=== PATIENT | male | born 1945 | race Caucasian/White ===

== ENCOUNTER 2019-07-13 17:22 | Inpatient (IN) | payer OTHER ==
[2019-07-13 17:56] VITALS: BMI 27.4
[2019-07-13] MEDS ORDERED: Ondansetron PF 4 MG/2 ML Vial IVP PRN (18:13)
[2019-07-13] MEDS ORDERED: Ondansetron ODT 4 MG TAB SL PRN (18:13)
[2019-07-13] MEDS ORDERED: Acetaminophen 325 MG TAB PO PRN (18:13)
[2019-07-13] MEDS ORDERED: Sodium Chloride 0.9% 1,000 ML IV SCH (18:13)
--- NOTE | 2019-07-13 20:16 | PDOC.EVN ---
Event Note - Event Note Event Note: [id number]
[2019-07-13] MEDS: Sodium Chloride 0.9% 1,000 ML IV SCH (21:04)
--- NOTE | 2019-07-13 23:51 | ULT ---
RENAL ULTRASOUND HISTORY: History of dislodged left-sided nephrostomy tube; evaluate for hydronephrosis COMPARISON: None FINDINGS: Right Kidney: Size: 9.0 x 4.2 x 5.7 cm. Abnormality: Normal cortical echotexture. No hydronephrosis. Left Kidney: Size: 9.3 x 4.7 x 4.6 cm. Abnormality: There is mild left hydronephrosis. Urinary bladder: No visible urinary jets identified. IMPRESSION: 1. Mild left hydronephrosis
--- NOTE | 2019-07-14 02:20 | HP ---
CHIEF COMPLAINT: Left nephrostomy tube dislodged. HISTORY OF PRESENT ILLNESS: Mr. Dobbs is a 73-year-old male who is an inmate, brought after it was noticed that his left nephrostomy tube got dislodged. The patient does have a history of prostate cancer, complications from bilateral ureteral stents, and insertion of bilateral nephrostomy tubes. The patient noticed that his left nephrostomy tube got dislodged the last 2 days. The patient denies any flank pain, abdominal pain, fever, or chills. The patient was brought for nephrostomy tube replacement. PAST MEDICAL HISTORY: 1. Prostate cancer. 2. Hearing loss. 3. Heart murmur. PAST SURGICAL HISTORY: 1. Bilateral nephrostomy tubes. 2. Bilateral ureteral stents. 3. Prostate surgery. FAMILY HISTORY: Reviewed and noncontributory. ALLERGIES: NO KNOWN ALLERGIES. HOME MEDICATIONS: Please see home medication reconciliation form for updated medications. REVIEW OF SYSTEMS: Review of 14 systems negative except what is mentioned in history of present illness. PHYSICAL EXAMINATION: GENERAL: The patient is awake, alert, does not appear to be in acute distress. VITAL SIGNS: Blood pressure 106/71, heart rate is 90, temperature 98.3, respiratory rate 20. HEAD AND NECK: Normocephalic, atraumatic. NECK: Supple. No JVD. CHEST: Fair bilateral air entry. HEART: S1, S2. Regular. ABDOMEN: Soft, nontender. Bowel sounds present. BACK: Right nephrostomy tube is secured in place. Ostomy of the left nephrostomy tube appears clean. No erythema. NEUROLOGIC: Awake, alert, and oriented x3. PSYCHIATRIC: Normal mood. EXTREMITIES: No clubbing or cyanosis. LABORATORY DATA: Done prior to arrival. WBC count is 8.6, hemoglobin 10.5, platelets 162. Sodium 138, potassium 4.3, BUN is 48, creatinine 2.8. The patient stated he has a history of chronic kidney disease, but he does not know what his baseline creatinine is. ASSESSMENT AND PLAN: 1. Left nephrostomy tube dislodged. 2. Chronic kidney disease. 3. History of prostate cancer. 4. Hearing loss. PLAN: 1. Admit. 2. Consulted Interventional Radiology for nephrostomy tube replacement. 3. IV fluids. 4. Reconcile home medications. 5. DVT prophylaxis as appropriate. 6. Expected length of stay at least 1 midnight if the patient is stable and have the procedure done. Job ID: [id number]
[2019-07-14] MEDS: Sodium Chloride 0.9% 1,000 ML IV SCH ×2 (04:58→08:22)
[2019-07-14 09:30] LABS: Anion Gap 11 mmol/L (10-20); BUN (Urea Nitrogen) 46 mg/dL (8.4-25.7); Calc. Creatinine Clearance 31 mL/min (70-130); Calcium 9.2 mg/dL (7.8-10.44); Carbon Dioxide 21 mmol/L (23-31); Chloride 112 mmol/L (98-107); Estimated GFR-MDRD 23; Glucose 89 mg/dL (83-110); Potassium 4.2 mmol/L (3.5-5.1); Sodium 140 mmol/L (136-145)
[2019-07-14] MEDS ORDERED: Iopamidol 300 61% 50 ML VIAL FS ONE (11:16)
--- NOTE | 2019-07-14 13:58 | SPC ---
Left nephrostomy tube placement: 07/14/2019 HISTORY: 73-year-old male with a history of prostate cancer. The patient's left-sided nephrostomy tub e recently was inadvertently dislodged. FINDINGS: Informed consent obtained prior to the procedure. The access tract for the patient's previous left nephrostomy tube was prepped and draped in normal st erile fashion. Using a Berenstein catheter, the pre-existing tract was probed. The Berenstein catheter was advanced into the renal collecting system and into the proximal ureter, location confirm ed with injection of small volume contrast media. A Think Upgrade wire was extended through the Berenstein catheter, and the Berenstein catheter was subsequently removed. The tract was dilated to 1 0 Vincentian. A 10 Vincentian nephrostomy tube was then advanced over the wire into the ureter. Wire was removed. The pigtail was formed in the renal collecting system and location was confirmed with inject ion of small volume contrast media. Aspiration at this point yields blood tinged urine. Catheter was locked in place and placed to gravity drainage. IMPRESSION: Successful left nephrostomy tube placement.
[2019-07-14] MEDS: HYDROcodone/Acetaminophen 5/325 mg Tablet PO PRN ×2 (15:38→21:00)
--- NOTE | 2019-07-14 21:50 | PDOC.HOSPP ---
- Subjective Encounter Date: 07/14/19 Encounter Time: 09:48 Subjective: 73 y/o male, [facility] inmate with prostate cancer complicated by bilateral hydronephrosis s/p bilateral nephrostomy tubes admitted after Left nephrostomy tube fell off. IR replacement of nephrostomy tube is planned today. - Objective Vital Signs & Weight: Vital Signs (12 hours) Temp Pulse Resp BP Pulse Ox 07/14/19 20:57 98.7 F 89 18 127/77 97 Weight Weight 208 lb Result Diagrams: 07/14/19 08:39 Hospitalist ROS - Medication Medications: Active Medications Generic Name Dose Route Start Last Admin Trade Name Freq PRN Reason Stop Dose Admin Hydrocodone Bitart/Acetaminophen 1 tab 07/13/19 19:29 07/14/19 21:00 [place] 5/325 PO 1 tab Q4H PRN Administration Moderate Pain (4-6) Sodium Chloride 1,000 mls @ 100 mls/hr 07/13/19 19:30 07/14/19 08:22 Normal Saline 0.9% IV 1,000 mls .Q10H DEBBI Administration - Exam General Appearance: awake alert Eye: anicteric sclera ENT: normocephalic atraumatic Neck: supple, symmetric, no thyromegaly, no lymphadenopathy Heart: RRR, murmur present Respiratory: no wheezes, no rales, no ronchi, normal chest expansion Gastrointestinal: soft, non-tender, non-distended, normal bowel sounds Extremities: no cyanosis, no edema Neurological: cranial nerve grossly intact, no focal deficits Musculoskeletal: generalized weakness Psychiatric: A&O x 3 Hosp A/P (1) Bilateral hydronephrosis Code(s): N13.30 - UNSPECIFIED HYDRONEPHROSIS Status: Acute (2) Prostate cancer Code(s): C61 - MALIGNANT NEOPLASM OF PROSTATE Status: Acute - Plan Continue home medications. Await IR replacement of left nephrostomy tube. D/W interventional regiographer. NPO to continue.
[2019-07-15] MEDS: Sodium Chloride 0.9% 1,000 ML IV SCH ×3 (04:50→20:10)
[2019-07-15 07:20] LABS: Hemoglobin 10.3 g/dL (14.0-18.0); Mean Corpuscular HGB CONC 33.8 g/dL (32.0-36.0); Mean Corpuscular Hemoglobin 31.3 pg (27.0-31.0); Mean Corpuscular Volume 92.6 fL (78.0-98.0); Mean Platelet Volume 8.8 fL (7.4-10.4); Platelet Count 169 thou/uL (130-400); RBC Distribution Width 11.9 % (11.5-14.5); Red Blood Cell (RBC) Count 3.28 mill/uL (4.70-6.10); White Blood Cell (WBC) Count 11.5 thou/uL (4.8-10.8)
[2019-07-15 07:42] LABS: Albumin 3.4 g/dL (3.4-4.8); Anion Gap 14 mmol/L (10-20); BUN (Urea Nitrogen) 50 mg/dL (8.4-25.7); BUN/Creatinine Ratio 14.84; Calc. Creatinine Clearance 26 mL/min (70-130); Calcium 9.5 mg/dL (7.8-10.44); Carbon Dioxide 20 mmol/L (23-31); Chloride 109 mmol/L (98-107); Estimated GFR-MDRD 18; Glucose 109 mg/dL (83-110); Phosphorus 3.1 mg/dL (2.3-4.7); Sodium 138 mmol/L (136-145)
[2019-07-15] MEDS ORDERED: Sodium Bicarbonate Tab 325 MG TAB PO SCH (10:15)
[2019-07-15] MEDS ORDERED: Sodium Chloride 0.9% 500 ML IV SCH (11:45)
--- NOTE | 2019-07-15 12:33 | ULT ---
Exam: Bilateral renal ultrasound complete: HISTORY: Worsening renal function post nephrostomy tube COMPARISON: 07/13/2019 FINDINGS: Right kidney: 9.1 x 4.9 x 4.3 cm. Left kidney: 9.6 x 5.7 x 4.9 cm The previous noted left-sided mild hydronephrosis has resolved. No evidence for hydronephrosis at this time. No evidence for abnormal perinephric process. No solid or cystic renal mass. Somewhat thickened appearing bladder wall, nonspecific, this could be seen in inflammation/infection versus neoplasm. IMPRESSION: No evidence for renal hydronephrosis. Nonspecific abnormal wall thickening of the urinary bladder.
--- NOTE | 2019-07-15 14:08 | PDOC.HOSPP ---
- Subjective Encounter Date: 07/15/19 Encounter Time: 13:47 Subjective: 73 y/o male, care home inmate with prostate cancer complicated by bilateral hydronephrosis s/p bilateral nephrostomy tubes admitted after Left nephrostomy tube fell off. S/p replacememt of left nephrostomy tube by IR. Complain of decreased urine output from the left. No fever, chills or dyuria - Objective Vital Signs & Weight: Vital Signs (12 hours) Temp Pulse Resp BP Pulse Ox 07/15/19 07:19 97.9 F 73 18 138/77 91 L 07/15/19 04:56 98.5 F 73 18 127/74 97 Weight Weight 208 lb I&O: 07/14/19 07/15/19 07/16/19 06:59 06:59 06:59 Intake Total 720 Output Total 737 Balance -17 Result Diagrams: 07/15/19 07:09 07/15/19 07:09 Hospitalist ROS - Medication Medications: Active Medications Generic Name Dose Route Start Last Admin Trade Name Freq PRN Reason Stop Dose Admin Hydrocodone Bitart/Acetaminophen 1 tab 07/13/19 19:29 07/14/19 21:00 [place] 5/325 PO 1 tab Q4H PRN Administration Moderate Pain (4-6) Sodium Chloride 1,000 mls @ 125 mls/hr 07/15/19 11:45 07/15/19 13:45 Normal Saline 0.9% IV 1,000 mls .Q8H DEBBI Administration - Exam General Appearance: awake alert Eye: anicteric sclera ENT: normocephalic atraumatic, moist mucosa Neck: symmetric, no JVD Heart: RRR, murmur present Respiratory: no wheezes, no rales, no ronchi, normal chest expansion Gastrointestinal: soft, non-tender, non-distended, normal bowel sounds Gastrointestinal - other findings: bilateral flank nephrostomy tubes noted Extremities: no edema Neurological: cranial nerve grossly intact, no focal deficits Psychiatric: A&O x 3 Hosp A/P (1) DONG (acute kidney injury) Code(s): N17.9 - ACUTE KIDNEY FAILURE, UNSPECIFIED Status: Acute (2) Prostate cancer Code(s): C61 - MALIGNANT NEOPLASM OF PROSTATE Status: Acute (3) CKD (chronic kidney disease) stage 3, GFR 30-59 ml/min Code(s): N18.3 - CHRONIC KIDNEY DISEASE, STAGE 3 (MODERATE) Status: Acute (4) Metabolic acidosis Code(s): E87.2 - ACIDOSIS Status: Acute (5) Chronic anemia Code(s): D64.9 - ANEMIA, UNSPECIFIED Status: Acute (6) Hydronephrosis of left kidney Code(s): N13.30 - UNSPECIFIED HYDRONEPHROSIS Status: Acute - Plan Restart IVF Get Repeat US Continue home medications. diet and liberal oral intake Monitor I/O Repeat CBC and renal function in the am.
[2019-07-15] MEDS: Sodium Bicarbonate Tab 325 MG TAB PO SCH (20:06)
[2019-07-15] MEDS: HYDROcodone/Acetaminophen 5/325 mg Tablet PO PRN (20:08)
[2019-07-16] MEDS: Sodium Chloride 0.9% 1,000 ML IV SCH ×2 (05:38→09:17)
[2019-07-16 06:12] LABS: Hemoglobin 8.9 g/dL (14.0-18.0); Mean Corpuscular HGB CONC 32.7 g/dL (32.0-36.0); Mean Corpuscular Hemoglobin 30.4 pg (27.0-31.0); Mean Corpuscular Volume 92.8 fL (78.0-98.0); Mean Platelet Volume 9.1 fL (7.4-10.4); Platelet Count 145 thou/uL (130-400); Red Blood Cell (RBC) Count 2.94 mill/uL (4.70-6.10)
[2019-07-16 06:30] LABS: Albumin 3.1 g/dL (3.4-4.8); Anion Gap 13 mmol/L (10-20); BUN (Urea Nitrogen) 49 mg/dL (8.4-25.7); BUN/Creatinine Ratio 13.54; Calc. Creatinine Clearance 24 mL/min (70-130); Calcium 8.9 mg/dL (7.8-10.44); Carbon Dioxide 20 mmol/L (23-31); Chloride 110 mmol/L (98-107); Estimated GFR-MDRD 17; Glucose 95 mg/dL (83-110); Phosphorus 2.7 mg/dL (2.3-4.7); Potassium 4.6 mmol/L (3.5-5.1); Sodium 138 mmol/L (136-145)
[2019-07-16] MEDS: Sodium Bicarbonate Tab 325 MG TAB PO SCH ×2 (08:11→20:55)
[2019-07-16] MEDS ORDERED: Calcium Carbonate 500 MG ChewTAB PO PRN (12:36)
[2019-07-16] MEDS ORDERED: Acetaminophen 325 MG TAB PO PRN (12:36)
[2019-07-16] MEDS ORDERED: Senokot S 8.6-50 MG TAB PO PRN (12:36)
[2019-07-16] MEDS ORDERED: Bisacodyl 10 MG SUPP PR PRN (12:36)
[2019-07-16] MEDS ORDERED: Ondansetron ODT 4 MG TAB PO PRN (12:36)
[2019-07-16] MEDS ORDERED: Ondansetron PF 4 MG/2 ML Vial IVP PRN (12:36)
[2019-07-16] MEDS: Sodium Bicarbonate 75 MEQ in Sodium Chloride 0.45% 1,000 ML IV SCH ×2 (13:19→20:55)
[2019-07-16] MEDS: Acetaminophen 325 MG TAB PO SCH ×2 (13:37→20:55)
[2019-07-16 16:40] LABS: Bilirubin Negative (Negative); Blood, Urine 3+ (Negative); Clarity Turbid (Clear); Glucose, Urine (Dipstick) Normal (Negative); Leukocyte 500 Leu/uL (Negative); Nitrite Negative (Negative); Protein, Urine (Dipstick) 100 mg/dL (Neg-Trace); RBC/HPF Greater than 50 HPF (0-3); Squamous Epithelial 0-3 HPF (0-3); Urobilinogen Normal mg/dL (Less than 2); WBC/HPF Greater than 50 HPF (0-3)
[2019-07-16 16:53] LABS: Bacteria/HPF 1+ HPF (None Seen); Creatinine, Urine 57.91 mg/dL (63-166)
[2019-07-16 16:55] LABS: Urine Culture Reflex Yes Yes
[2019-07-16] MEDS: Terazosin HCl 5 MG CAP PO SCH (20:55)
[2019-07-16] MEDS: HYDROcodone/Acetaminophen 5/325 mg Tablet PO PRN (21:02)
--- NOTE | 2019-07-16 22:41 | PDOC.HOSPP ---
- Subjective Encounter Date: 07/16/19 Encounter Time: 14:00 Subjective: Patient seen and examined for DONG/obstructive uropathy. Reduced output from left nephrostomy tube. No fever or chills. No new complaints. No overnight events - Objective Vital Signs & Weight: Vital Signs (12 hours) Temp Pulse Resp BP Pulse Ox 07/16/19 20:00 99.9 F H 72 20 105/64 94 L Weight Weight 208 lb I&O: 07/15/19 07/16/19 07/17/19 06:59 06:59 06:59 Intake Total 720 1740 Output Total 737 1720 1100 Balance - 20 Result Diagrams: 07/17/19 05:35 07/17/19 05:35 Radiology Reviewed by me: No (Renal ultrasound - reviewed) Hospitalist ROS - Review of Systems Cardiovascular: denies: chest pain, palpitations, orthopnea, paroxysmal noc. dyspnea, edema, light headedness, other Gastrointestinal: denies: nausea, vomiting, abdominal pain, diarrhea, constipation, melena, hematochezia, other - Medication Medications: Active Medications Generic Name Dose Route Start Last Admin Trade Name Freq PRN Reason Stop Dose Admin Acetaminophen 650 mg 07/16/19 15:00 07/16/19 20:55 Tylenol PO 650 mg TID DEBBI Administration Hydrocodone Bitart/Acetaminophen 1 tab 07/13/19 19:29 07/16/19 21:02 [place] 5/325 PO 1 tab Q4H PRN Administration Moderate Pain (4-6) Sodium Bicarbonate 75 meq/ 1,075 mls @ 150 mls/hr 07/16/19 12:15 07/16/19 20: 55 Sodium Chloride IV 1,075 mls .Q7H10M DEBBI Administration Sodium Bicarbonate 650 mg 07/15/19 21:00 07/16/19 20:55 Bicarbonate, Sodium PO 650 mg BID DEBBI Administration Terazosin HCl 5 mg 07/16/19 21:00 07/16/19 20:55 Hytrin PO 5 mg HS DEBBI Administration - Exam General Appearance: NAD Heart: RRR, no gallops Respiratory: CTAB, no rales Gastrointestinal: soft, non-distended Gastrointestinal - other findings: B/L nephrostomy tube Extremities: no edema Hosp A/P - Plan DVT proph w/SCDs Left Nephrotomy tube malfunction s/p replacement (POA) DONG on CKD 3 - worsening Metabolic acidosis h/o Prostate CA Obstructive uropathy s/p ureteral stents PLAN: Consult Nephrology due to worsening renal function Will d/w IR due to low left NT output AM labs Add sodium bicarb to IVF Cont other meds Laboratory Tests 07/16/19 05:37 Creatinine 3.62 H
[2019-07-17] MEDS: Sodium Bicarbonate 75 MEQ in Sodium Chloride 0.45% 1,000 ML IV SCH ×3 (05:16→20:24)
[2019-07-17 05:54] LABS: #Basophils 0.1 thou/uL (0.0-0.2); #Eosinphils 0.5 thou/uL (0.0-0.7); #Lymphocytes 2.8 thou/uL (1.20-3.40); #Monocytes 0.9 thou/uL (0.11-0.59); #Neutrophils 6.6 thou/uL (1.40-6.50); %Basophils 0.6 % (0.0-1.0); %Eosinophils 4.6 % (0.0-10.0); %Lymphocytes 26.2 % (21.0-51.0); %Neutrophils 60.6 % (42.0-75.0); Hemoglobin 9.7 g/dL (14.0-18.0); Mean Corpuscular HGB CONC 33.6 g/dL (32.0-36.0); Mean Corpuscular Hemoglobin 31.2 pg (27.0-31.0); Mean Corpuscular Volume 92.8 fL (78.0-98.0); Mean Platelet Volume 8.9 fL (7.4-10.4); Platelet Count 152 thou/uL (130-400); White Blood Cell (WBC) Count 10.9 thou/uL (4.8-10.8)
[2019-07-17 06:15] LABS: Anion Gap 13 mmol/L (10-20); BUN (Urea Nitrogen) 49 mg/dL (8.4-25.7); Calc. Creatinine Clearance 25 mL/min (70-130); Carbon Dioxide 23 mmol/L (23-31); Chloride 107 mmol/L (98-107); Estimated GFR-MDRD 17; Glucose 86 mg/dL (83-110); Potassium 3.8 mmol/L (3.5-5.1); Sodium 139 mmol/L (136-145)
--- NOTE | 2019-07-17 06:49 | CON ---
DATE OF CONSULTATION: 07/16/2019 SERVICE: Nephrology. REASON FOR CONSULTATION: Acute kidney injury. REQUESTING PHYSICIAN: Dr. Daniel Patel. HISTORY OF PRESENT ILLNESS: A 73-year-old male with known history of prostate cancer associated with bilateral hydronephrosis that failed stent placement and hence had bilateral nephrostomy tubes, who was admitted from the nursing home due to dislodgement of left nephrostomy tube. The patient has history of CKD, but baseline creatinine is unknown. The patient subsequently had a replacement of left nephrostomy tube. However, it was noticed that drainage from the left was poor and the patient also had acute increase in creatinine, necessitating Nephrology consult. Repeat ultrasound post replacement of nephrostomy tube showed resolution of earlier noted left-sided hydronephrosis. The patient otherwise has no complaints. Denied nausea, vomiting, abdominal pain, dizziness, or fever. He continued to make some urine from the penis, though most of the urine comes out from both nephrostomy tubes. He denied fever, cough, shortness of breath, chest pain, dizziness, headache, or leg swelling. He also denied nausea, vomiting, or change in bowel habits. PAST MEDICAL HISTORY: 1. Prostate cancer. 2. Bilateral hydronephrosis. 3. Chronic kidney disease, stage 4. 4. Heart murmur. 5. Hearing loss. PAST SURGICAL HISTORY: 1. Bilateral nephrostomy tubes. 2. Bilateral ureteral stents. 3. Prostate surgery. FAMILY HISTORY: Reviewed, but noncontributory. SOCIAL HISTORY: The patient is currently an inmate in the nursing home. Currently does not drink or smoke or use recreational drugs. ALLERGIES: NO KNOWN ALLERGIES REPORTED. HOME MEDICATIONS: 1. Acetaminophen 650 mg p.o. t.i.d. 2. Calcium with vitamin D and magnesium one tablet p.o. daily. 3. Calcium polycarbophil 625 mg p.o. daily. 4. Meclizine 25 mg p.o. daily. 5. Terazosin 5 mg p.o. daily. REVIEW OF SYSTEMS: 12-point review of systems performed was negative other than pertinent positives and negatives included in the history of present illness. PHYSICAL EXAMINATION: VITAL SIGNS: Temperature 98.8, pulse 83, respiratory rate 20, SpO2 of 97% on room air, and blood pressure is 114/72. GENERAL: Healthy-looking elderly male, in no obvious distress. Afebrile. Anicteric. Acyanotic. HEENT: Normocephalic, atraumatic. Oral mucosa is mildly dry. NECK: Supple with no JVD. CARDIOVASCULAR: Regular rhythm and rate with normal heart sounds 1 and 2. Systolic murmur noted. RESPIRATORY: Good air entry bilaterally with no crackle or rhonchi or use of accessory muscles. GI: Full, soft, nontender, nondistended with normal bowel sounds. MUSCULOSKELETAL: Bilateral lower back/flank nephrostomy tubes noted. EXTREMITIES: Grossly normal looking, atraumatic with no obvious edema or erythema. SKIN: No rash appreciated. Skin rather looked dry. MARRIAGE AND FAMILY THERAPIST: Conscious and alert, oriented x3 with appropriate mental status. Cranial nerves 2 through 12 are grossly intact. The patient is hard of hearing. Moves all extremities. Intake and output in the last 24 hours, the patient had a total intake of 1740 with output of 1720. DIAGNOSTIC DATA: CBC showed WBC count of 11.0, hemoglobin of 8.9, MCV of 92.8, and platelets of 145. Renal function panel showed sodium 138, potassium 4.6, chloride 110, CO2 of 20, BUN 49, creatinine 3.62, glucose 95, calcium 8.9, phosphorus 2.7, and albumin 3.1. Note that, creatinine has gone up from 2.76 on admission to 3.62. ASSESSMENT: 1. Acute kidney injury: Most likely due to a prerenal etiology related to volume depletion. Urine output has increased and the patient is pretty much clinically dry. It is suspected that the patient may be having post obstruction diuresis. The patient is not on any nephrotoxic agent, and there was no recent IV contrast use. 2. Chronic kidney disease, stage 4, most likely due to obstructive uropathy. 3. Prostate cancer with bilateral hydronephrosis, status post bilateral nephrostomy tubes. Both kidneys are draining well. 4. Dislodgement of left nephrostomy tube, status post replacement. PLAN: 1. We will increase IV fluid therapy. We will also change from normal saline to bicarb-containing infusion due to worsening hyperchloremic acidosis. 2. We will also continue oral alkali therapy. 3. We will get urinalysis with urine electrolytes. 4. We will recheck renal function in the morning and if creatinine continues to trend up, we will be forced to do a repeat ultrasound to ascertain no new development of hydronephrosis. Many thanks for involving us in the care of this patient. We will follow along with you. Further recommendation to follow depending on hospital course. We will also get medical record from [place] to ascertain baseline creatinine level. Job ID: [id number]
[2019-07-17] MEDS: Meclizine HCl 25 MG TAB PO SCH (08:18)
[2019-07-17] MEDS: Acetaminophen 325 MG TAB PO SCH ×3 (08:21→20:21)
[2019-07-17] MEDS: Calcium Carbonate + Vit D 1 TAB PO SCH (08:21)
[2019-07-17] MEDS: Sodium Bicarbonate Tab 325 MG TAB PO SCH ×2 (08:21→20:21)
--- NOTE | 2019-07-17 10:46 | PRG ---
DATE OF SERVICE: 07/17/2019 SERVICE: Nephrology. SUBJECTIVE: A 73-year-old custodial inmate with prostate cancer associated with bilateral hydronephrosis, status post failed bilateral renal stent, ureteral stents, and currently with bilateral nephrostomies, admitted due to dislodged left nephrostomy tube. The patient is status post replacement of nephrostomy tube. However, creatinine was trending up, necessitating Nephrology consult. The patient reports no new complaint. However, he reported that urine output from the left nephrostomy has gone down to zero. He also reported increased output from the urinary tract. Drainage from the right nephrostomy tube is at baseline. No fever, chills, rigor, dysuria, leg swelling, shortness of breath, cough, headache, or focal weakness. OBJECTIVE: VITAL SIGNS: Temperature 97.8, pulse rate 76, respiratory rate 18, SpO2 of 94% on room air, and blood pressure is 127/69. GENERAL: Healthy-looking elderly male, in no obvious distress. Afebrile. Anicteric. Acyanotic. HEENT: Normocephalic and atraumatic. Oral mucosa is moist. NECK: Supple with no JVD. CARDIOVASCULAR: Regular rhythm and rate with normal heart sounds one and two. Soft systolic murmur noted. RESPIRATORY: Good air entry bilaterally with no crackle or rhonchi or use of accessory muscles. GI: Full, soft, nontender, nondistended with normal bowel sounds. MUSCULOSKELETAL/EXTREMITIES: Bilateral lower back/flank nephrostomy tubes noted. Both lower extremities are grossly normal looking, atraumatic with no edema or erythema. INNOVATION ANALYST: Conscious and alert and oriented x3 with appropriate mental status. Cranial nerves II through XII are grossly intact. The patient is hard of hearing. Moves all extremities. DIAGNOSTIC DATA: CBC showed WBC count of 10.9, hemoglobin of 9.7, MCV of 92.8, and platelet of 152. BMP today showed sodium of 139, potassium 3.8, chloride 107, CO2 of 23, BUN 49, creatinine 3.46, glucose 86, calcium 9.0. Of note, on presentation, creatinine was 2.76 and BUN 46. Urinalysis showed yellow turbid urine with pH of 6.5, specific gravity of 1.012, urine protein of 100 mg/dL, normal glucose, negative ketone, nitrite, bilirubin. Blood is 3+ and leukocyte esterase, markedly elevated. Microscopy showed greater than 50 rbc and greater than 50 wbc. Bacteria 1+. Urine electrolytes showed urine creatinine of 57.9, urine sodium of 102, and urine urea nitrogen of 437. ASSESSMENT: 1. [id number] renal failure: [place] to be due to prerenal etiology from volume depletion related to post obstruction diuresis. Also obstructive uropathy superimposed cannot be ruled out given decreased output from newly replaced left nephrostomy tube. 2. Chronic kidney disease stage 4: Related to obstructive uropathy. 3. Metabolic acidosis: Due to chronic kidney disease with chloride containing fluid therapy. Improving with sodium bicarb containing fluid. 4. Bilateral hydronephrosis status post bilateral nephrostomy tubes. 5. Prostate cancer, status post surgery, complicated with bilateral hydronephrosis. PLAN: 1. We will increase IV fluid therapy to 200 mL/h given the fact that blood pressures are soft and urine output is increased with negative fluid balance. 2. Urology consult is recommended to assess desirability of left nephrostomy tube and to rule out obstruction given little or no output from the newly placed nephrostomy tube. The patient reported increased output from the urethra suggesting downward drainage. 3. We will recheck renal function in the morning. Many thanks for involving us in the care of this patient. We will follow along with you. Interval renal ultrasound also could be considered to ascertain absence of hydronephrosis on the left side. Discussed care plan with the primary attending. Job ID: [id number]
[2019-07-17] MEDS ORDERED: Midazolam HCl 2 mg/2 ml Vial ONE (12:58)
[2019-07-17] MEDS ORDERED: Fentanyl 100 MCG/2 ML VIAL ONE (12:58)
--- NOTE | 2019-07-17 14:54 | SPC ---
Exam: Intraoperative/intraprocedure fluoroscopy Exposure: 0.1 minutes. 598 mg/sq cm FINDINGS: Contrast was injected via a left-sided percutaneous nephrostomy. Contrast appears to be jus t peripheral to the collecting system but does appear to opacify the collecting system via a tract. IMPRESSION: Fluoroscopy as above.
--- NOTE | 2019-07-17 15:05 | SPC ---
LEFT NEPHROSTOMY TUBE EXCHANGE WITH FLUOROSCOPY: HISTORY: Left sided hydronephrosis. EXPOSURE: 2.6 minutes 16,724 mGy per cm2 FINDINGS: Successful left nephrostomy tube exchange. A new 10-Malay nephrostomy catheter was placed such that the coil of the catheter is in the proximal ureter. Contrast opacifies the intrarenal and extrarenal collecting system. There is appropriate drainage of contrast via the nephrostomy catheter. TECHNIQUE: Consent obtained to perform a left nephrostomy exchange. Lidocaine 1% was used for local anesthesia. Through the nephrostomy, an attempt was made to pass an Amplatz wire and a Bentson wire, which were unsuccessful. Therefore, a short Berenstein catheter was used to cannulate the intrarenal collecting system. Once the Berenstein catheter was in the collecting system, a Bentson wire was advanced into the left ureter. A 10-Malay nephrostomy was advanced over the wire. Metallic wire and plastic stiffe ner were removed. Coil was formed. Contrast was administered and opacifies the intrarenal collecting system. The catheter was secured to the patient with suture (0 silk). The patient tolerate d the procedure well. No immediate or post procedure complications IMPRESSION: Successful left nephrostomy tube exchange with fluoroscopic guidance. Transcribed Date/Time: 07/17/2019 3:36 PM
[2019-07-17] MEDS: Terazosin HCl 5 MG CAP PO SCH (20:22)
[2019-07-17] MEDS: HYDROcodone/Acetaminophen 5/325 mg Tablet PO PRN (20:22)
[2019-07-18] MEDS: Sodium Bicarbonate 75 MEQ in Sodium Chloride 0.45% 1,000 ML IV SCH ×2 (02:30→06:53)
[2019-07-18 05:53] LABS: Anion Gap 11 mmol/L (10-20); BUN (Urea Nitrogen) 45 mg/dL (8.4-25.7); Calc. Creatinine Clearance 27 mL/min (70-130); Calcium 8.3 mg/dL (7.8-10.44); Carbon Dioxide 26 mmol/L (23-31); Chloride 106 mmol/L (98-107); Estimated GFR-MDRD 19; Glucose 82 mg/dL (83-110); Potassium 3.8 mmol/L (3.5-5.1); Sodium 139 mmol/L (136-145)
--- NOTE | 2019-07-18 08:31 | PDOC.HOSPP ---
- Subjective Encounter Date: 07/17/19 Encounter Time: 10:00 Subjective: Patient seen and examined for DONG/nephrostomy tube malfunction. No output from left nephrostomy. No new complaints. No overnight events - Objective Vital Signs & Weight: Vital Signs (12 hours) Temp Pulse Resp BP Pulse Ox 07/18/19 08:01 98.4 F 89 18 105/63 94 L 07/18/19 03:56 98.8 F 70 20 114/68 92 L 07/18/19 00:00 98.2 F 84 20 106/63 95 Weight Weight 208 lb I&O: 07/17/19 07/18/19 07/19/19 06:59 06:59 06:59 Intake Total 500 Output Total 1895 5 Balance -1895 -1618 Result Diagrams: 07/17/19 05:35 07/18/19 05:20 Additional Labs: Laboratory Tests 07/16/19 07/17/19 05:37 05:35 Creatinine 3.62 H 3.46 H Hospitalist ROS - Review of Systems Respiratory: denies: cough, dry, shortness of breath, hemoptysis, SOB with excertion, pleuritic pain, sputum, wheezing, other Cardiovascular: denies: chest pain, palpitations, orthopnea, paroxysmal noc. dyspnea, edema, light headedness, other - Medication Medications: Active Medications Generic Name Dose Route Start Last Admin Trade Name Freq PRN Reason Stop Dose Admin Acetaminophen 650 mg 07/16/19 15:00 07/17/19 20:21 Tylenol PO 650 mg TID DEBBI Administration Hydrocodone Bitart/Acetaminophen 1 tab 07/13/19 19:29 07/17/19 20:22 [place] 5/325 PO 1 tab Q4H PRN Administration Moderate Pain (4-6) Calcium/Vitamin D 1 tab 07/17/19 09:00 07/17/19 08:21 Caltrate 600 + Vit D PO 1 tab DAILY DEBBI Administration Meclizine HCl 25 mg 07/17/19 09:00 07/17/19 08:18 Antivert PO Not Given DAILY DEBBI Sodium Bicarbonate 650 mg 07/15/19 21:00 07/17/19 20:21 Bicarbonate, Sodium PO 650 mg BID DEBBI Administration Terazosin HCl 5 mg 07/16/19 21:00 07/17/19 20:22 Hytrin PO 5 mg HS DEBBI Administration - Exam General Appearance: NAD Heart: RRR, no gallops Respiratory: no wheezes, no rales Gastrointestinal: soft, non-tender, normal bowel sounds Extremities: no edema Hosp A/P - Plan DVT proph w/SCDs Left Nephrotomy tube malfunction s/p replacement (POA) DONG on CKD 3 - worsening Metabolic acidosis h/o Prostate CA Obstructive uropathy s/p ureteral stents PLAN: I d/w IR and Urology Will need Left Nephrostogram due to no output. Cont IVF AM labs cont other meds
[2019-07-18] MEDS: Sodium Bicarbonate Tab 325 MG TAB PO SCH (08:43)
[2019-07-18] MEDS: Acetaminophen 325 MG TAB PO SCH ×3 (08:44→20:12)
[2019-07-18] MEDS: Calcium Carbonate + Vit D 1 TAB PO SCH (08:44)
[2019-07-18] MEDS: Meclizine HCl 25 MG TAB PO SCH (08:44)
--- NOTE | 2019-07-18 12:12 | ULT ---
US Venous Doppler Lt Unilat History: Left upper extremity swelling Comparison: None. Findings: Real-time grayscale, color, and spectral analysis of the J venous system was performed. Int ernal jugular subclavian cephalic basilic brachial radial and ulnar veins were interrogated. Normal flow augmentation and compression. Impression: No deep venous thrombosis.
--- NOTE | 2019-07-18 15:55 | PRG ---
DATE OF SERVICE: 07/18/2019 SERVICE: Nephrology. SUBJECTIVE: A 73-year-old male with CKD 4, bilateral hydronephrosis status post bilateral nephrostomy tubes, admitted after dislodgement of left nephrostomy tube. The patient developed acute kidney injury after left nephrostomy tube replacement. The patient had a change of left nephrostomy tube due to poor drainage with increased drainage. Denied nausea, vomiting, abdominal pain, fever, or chills. OBJECTIVE: VITAL SIGNS: Temperature 98.4, pulse 89, respiratory rate 18, SpO2 of 94% on room air, and blood pressure is 105/63. GENERAL: Elderly male, in no distress. Afebrile. Anicteric. Acyanotic. HEENT: Normocephalic and atraumatic. Oral mucosa is moist. CARDIOVASCULAR: Regular rhythm and rate with normal heart sounds 1 and 2. RESPIRATORY: Good air entry bilaterally with no obvious crackle or rhonchi or use of accessory muscles. GI: Full, soft, nontender, and nondistended with normal bowel sounds. MUSCULOSKELETAL/EXTREMITIES: Bilateral lower back nephrostomy tubes noted. Mild left hand and forearm edema noted. Otherwise, extremities are grossly normal and atraumatic with no edema or erythema. FLAVOR EXTRACTOR: Conscious, alert, and oriented x3 with appropriate mental status. Cranial nerves 2 through 12 are grossly intact. DIAGNOSTIC DATA: BMP showed sodium 139, potassium 3.8, chloride 106, CO2 of 26, BUN 45, creatinine 3.24, glucose 82, and calcium 8.3. Urine culture collected from both nephrostomy tubes grew presumptive Pseudomonas and Staphylococcus species. ASSESSMENT: 1. Acute kidney injury: Due to postobstruction diuresis and volume depletion with possible contribution from hydronephrosis from poor drainage from left kidney. Renal function is trending downwards with IV fluid therapy and replacement of left nephrostomy tube. 2. Chronic kidney disease: Most likely related to obstructive uropathy. 3. Left hand and forearm swelling: Due to a subluxation of IV fluids. 4. Metabolic acidosis: Improved with bicarb infusion. 5. Anemia on chronic kidney disease: No acute issues. 6. Bilateral hydronephrosis status post bilateral nephrostomy tubes. The patient had a regular urology at [facility]. PLAN: The patient can be discharged from Nephrology point of view. We can discontinue IV fluids therapy. Monitor intake and output and keep a record. The patient needs to follow up with regular urologist and metal or wood blocker at [facility]. Job ID: [id number]
[2019-07-18] MEDS: Vancomycin 1.5 GRAM/300 ML BAG 1.5 GM in Premix Bag 1 BAG IVPB SCH (18:36)
[2019-07-18] MEDS: Terazosin HCl 5 MG CAP PO SCH (20:12)
[2019-07-18] MEDS: HYDROcodone/Acetaminophen 5/325 mg Tablet PO PRN (20:15)
[2019-07-18] MEDS: Piperacillin/Tazobactam 2.25 GM in Sodium Chloride 0.9% 100 ML IVPB SCH ×3 (21:32→21:43)
--- NOTE | 2019-07-18 23:52 | PDOC.HOSPP ---
- Subjective Encounter Date: 07/18/19 Encounter Time: 10:30 Subjective: Patient seen and examined for DONG. Left hand swelling over the dorsum. No new complaints. No overnight events - Objective Vital Signs & Weight: Vital Signs (12 hours) Temp Pulse Resp BP Pulse Ox 07/18/19 19:57 98.2 F 75 19 126/75 95 07/18/19 17:09 98.9 F 71 18 124/75 95 07/18/19 12:40 98.7 F 68 18 130/70 96 Weight Weight 208 lb I&O: 07/17/19 07/18/19 07/19/19 06:59 06:59 06:59 Intake Total 500 720 Output Total 2576 2801 1089 Balance -0878 -1631 -987 Result Diagrams: 07/17/19 05:35 07/18/19 05:20 Additional Labs: Microbiology 07/16/19 16:53 Urine Nephrostomy tube Urine Culture - Preliminary Presumptive Pseudomonas Methicillin resistant S.aureus Hospitalist ROS - Review of Systems Respiratory: denies: cough, dry, shortness of breath, hemoptysis, SOB with excertion, pleuritic pain, sputum, wheezing, other Cardiovascular: denies: chest pain, palpitations, orthopnea, paroxysmal noc. dyspnea, edema, light headedness, other - Medication Medications: Active Medications Generic Name Dose Route Start Last Admin Trade Name Freq PRN Reason Stop Dose Admin Acetaminophen 650 mg 07/16/19 15:00 07/18/19 20:12 Tylenol PO 650 mg TID DEBBI Administration Hydrocodone Bitart/Acetaminophen 1 tab 07/13/19 19:29 07/18/19 20:15 [place] 5/325 PO 1 tab Q4H PRN Administration Moderate Pain (4-6) Calcium/Vitamin D 1 tab 07/17/19 09:00 07/18/19 08:44 Caltrate 600 + Vit D PO 1 tab DAILY DEBBI Administration Vancomycin HCl 1.5 gm/ Device 300 mls @ 200 mls/hr 07/18/19 17:00 07/18/19 18 :36 IVPB 300 mls 1700 DEBBI Administration Piperacillin Sod/Tazobactam 100 mls @ 200 mls/hr 07/18/19 22:00 07/18/19 21: 43 Sod 2.25 gm/ Sodium Chloride IVPB Not Given 0400,1000,1600,2200 DEBBI Meclizine HCl 25 mg 07/17/19 09:00 07/18/19 08:44 Antivert PO 25 mg DAILY DEBBI Administration Terazosin HCl 5 mg 07/16/19 21:00 07/18/19 20:12 Hytrin PO 5 mg HS DEBBI Administration - Exam General Appearance: NAD Heart: RRR, no gallops Respiratory: CTAB, no rales Gastrointestinal: soft, non-distended Extremities: no cyanosis Extremities - other findings: Left hand swelling Hosp A/P - Plan DVT proph w/SCDs Left Nephrotomy tube malfunction s/p replacement (POA) DONG on CKD 3 - worsening Metabolic acidosis h/o Prostate CA Obstructive uropathy s/p ureteral stents LUE swelling - r/o DVT PLAN: IVF dced LUE doppler to r/o DVT DC later today if stable Cont other meds Update @1600: Patient now c/o discomfort over the Rt Nephrostomy site. RN reported small amt of drainage from the Nephrostomy site. Will consult ID Start IV Vanc/Zosyn Monitor Vanc level Await urine cultures
[2019-07-19] MEDS: Piperacillin/Tazobactam 2.25 GM in Sodium Chloride 0.9% 100 ML IVPB SCH ×4 (04:10→20:52)
[2019-07-19 05:33] LABS: #Eosinphils 0.6 thou/uL (0.0-0.7); #Lymphocytes 1.8 thou/uL (1.20-3.40); #Monocytes 0.7 thou/uL (0.11-0.59); #Neutrophils 5.4 thou/uL (1.40-6.50); %Basophils 0.4 % (0.0-1.0); %Eosinophils 6.5 % (0.0-10.0); %Lymphocytes 21.4 % (21.0-51.0); %Monocytes 7.9 % (0.0-10.0); %Neutrophils 63.8 % (42.0-75.0); Hemoglobin 8.5 g/dL (14.0-18.0); Mean Corpuscular Hemoglobin 30.8 pg (27.0-31.0); Mean Corpuscular Volume 93.4 fL (78.0-98.0); Mean Platelet Volume 9.3 fL (7.4-10.4); Platelet Count 170 thou/uL (130-400); RBC Distribution Width 11.9 % (11.5-14.5); Red Blood Cell (RBC) Count 2.75 mill/uL (4.70-6.10); White Blood Cell (WBC) Count 8.5 thou/uL (4.8-10.8)
[2019-07-19 06:08] LABS: ALT (SGPT) 26 U/L (8-55); AST (SGOT) 28 U/L (5-34); Albumin 2.9 g/dL (3.4-4.8); Alkaline Phosphatase 65 U/L (40-110); Anion Gap 13 mmol/L (10-20); BUN (Urea Nitrogen) 40 mg/dL (8.4-25.7); Bilirubin, Total 0.6 mg/dL (0.2-1.2); Calc. Creatinine Clearance 25 mL/min (70-130); Calcium 8.6 mg/dL (7.8-10.44); Carbon Dioxide 23 mmol/L (23-31); Chloride 109 mmol/L (98-107); Estimated GFR-MDRD 18; Globulin 2.8 g/dL (2.4-3.5); Glucose 82 mg/dL (83-110); Protein, Total 5.7 g/dL (5.8-8.1); Sodium 141 mmol/L (136-145)
[2019-07-19] MEDS: Calcium Carbonate + Vit D 1 TAB PO SCH (08:31)
[2019-07-19] MEDS: Acetaminophen 325 MG TAB PO SCH ×3 (08:31→20:51)
[2019-07-19] MEDS: Meclizine HCl 25 MG TAB PO SCH (08:31)
[2019-07-19] MEDS: Lactated Ringer's 1,000 ML IV SCH ×2 (08:32→16:41)
--- NOTE | 2019-07-19 09:07 | PRG ---
DATE OF SERVICE: 07/19/2019 SERVICE: Nephrology. SUBJECTIVE: A 73-year-old group home inmate admitted due to dislodgement of left nephrostomy tube. The patient had a replacement of left nephrostomy tube which was followed by acute kidney injury necessitating Nephrology consult. The patient was treated with IV fluid with improvement of renal function test and was to be discharged yesterday. However, he was found to have drainage from right nephrostomy exit site and urine culture also grew pseudomonas and staph. The patient is now on IV antibiotics. Had some right flank pain yesterday, which has improved. Denied fever, nausea, or vomiting. OBJECTIVE: VITAL SIGNS: Temperature 98.2, pulse 75, respiratory rate 19, SpO2 95% on room air, blood pressure is 126/75. GENERAL: Comfortable elderly male, in no distress. Afebrile. Anicteric. Acyanotic. HEENT: Normocephalic, atraumatic. Oral mucosa is moist. CARDIOVASCULAR: Regular rhythm and rate with normal heart sounds one and two. RESPIRATORY: Good air entry bilaterally with no crackle or rhonchi or use of accessory muscles. GI: Full, soft, nontender, nondistended with normal bowel sounds. MUSCULOSKELETAL: Bilateral lower back/flank nephrostomy tubes noted. Some mild drainage around the right nephrostomy tube which moves in and out of the exit wound with some minimal drainage on the dressing. The patient also complained some tenderness around the site. EXTREMITIES: Mild bilateral leg fullness noted. Mild left hand edema noted as well. Distal pulses are palpable. There is no erythema. MECHANICAL APPRENTICE: Conscious, alert, oriented x3 with appropriate mental status. Cranial nerves 2 through 12 are grossly intact. The patient moves all extremities. DIAGNOSTIC DATA: CBC today showed WBC count of 8.5, hemoglobin of 8.5, MCV of 93.4, platelet of 170. CMP showed sodium 141, potassium 4.0, chloride 109, CO2 of 23, BUN 40, creatinine 3.44, glucose 82, calcium 8.6, total bilirubin 0.6, AST 28, ALT 26, alkaline phosphatase 65, total protein 5.7, albumin 2.9, globulin 2.8. Urine culture of July 16 grew presumptive pseudomonas as well as methicillin-resistant Staph aureus. Intake and output in the last 24 hours, patient took in 1400 mL of fluid with output of 2795 with negative balance of 1395. ASSESSMENT: 1. Acute kidney injury: [place] to be due to volume depletion from post obstruction diuresis with contribution from cytokine mediated injury related to urinary tract infection. Pyelonephritis is a concern given drainage from the right nephrostomy tube and increase in pain and cloudy urine. 2. Presumed infected right nephrostomy tube. 3. Anemia in chronic kidney disease. 4. Chronic kidney disease stage 4. 5. Prostate cancer, status post treatment. 6. Bilateral hydronephrosis related to prostate cancer, status post bilateral nephrostomy tubes. 7. Dislodgement of left nephrostomy tube, status post replacement. PLAN: 1. We will restart IV fluid therapy as the patient is in negative balance. Creatinine also went up in the last 24 hours. 2. I agree with empirical antibiotic therapy with Zosyn and vancomycin. 3. Await infectious Disease evaluation. Exchange of the right nephrostomy tube is most likely. 4. We will also get urinalysis with reflex to culture from the right nephrostomy tube to isolate the source of infection. Further treatment to follow depending on hospital course. Job ID: [id number]
[2019-07-19 10:22] LABS: Bilirubin Negative (Negative); Blood, Urine 2+ (Negative); Clarity Clear (Clear); Glucose, Urine (Dipstick) Normal (Negative); Leukocyte 500 Leu/uL (Negative); Nitrite Negative (Negative); Protein, Urine (Dipstick) 70 mg/dL (Neg-Trace); RBC/HPF Greater than 50 HPF (0-3); Squamous Epithelial None Seen HPF (0-3); Urobilinogen Normal mg/dL (Less than 2)
[2019-07-19 10:23] LABS: Bacteria/HPF 1+ HPF (None Seen)
[2019-07-19 10:24] LABS: Urine Culture Reflex Yes Yes
--- NOTE | 2019-07-19 16:03 | PDOC.HOSPP ---
- Subjective Encounter Date: 07/19/19 Encounter Time: 11:30 Subjective: Patient seen and examined for complicated UTI. No fever. Rt flank pain improving. No new complaints. No overnight events - Objective Vital Signs & Weight: Vital Signs (12 hours) Temp Pulse Resp BP Pulse Ox 07/19/19 08:28 98.4 F 108 H 16 101/60 93 L 07/19/19 08:00 98.4 F 108 H 18 101/60 93 L Weight Weight 208 lb I&O: 07/18/19 07/19/19 07/20/19 06:59 06:59 06:59 Intake Total 500 1400 Output Total 2115 4685 Balance -1615 -1106 Result Diagrams: 07/19/19 05:03 07/19/19 05:03 Additional Labs: Microbiology 07/16/19 16:53 Urine Nephrostomy tube Urine Culture - Final Pseudomonas aeruginosa Methicillin resistant S.aureus 07/18/19 16:46 Venous blood - Right Arm Blood Culture - Preliminary Specimen has been received and culture in progress. No Growth to date. 07/18/19 16:39 Venous blood - Left Arm Blood Culture - Preliminary Specimen has been received and culture in progress. No Growth to date. Hospitalist ROS - Review of Systems Respiratory: denies: cough, dry, shortness of breath, hemoptysis, SOB with excertion, pleuritic pain, sputum, wheezing, other Cardiovascular: denies: chest pain, palpitations, orthopnea, paroxysmal noc. dyspnea, edema, light headedness, other - Medication Medications: Active Medications Generic Name Dose Route Start Last Admin Trade Name Freq PRN Reason Stop Dose Admin Acetaminophen 650 mg 07/16/19 15:00 07/19/19 15:50 Tylenol PO 650 mg TID DEBBI Administration Hydrocodone Bitart/Acetaminophen 1 tab 07/13/19 19:29 07/18/19 20:15 [place] 5/325 PO 1 tab Q4H PRN Administration Moderate Pain (4-6) Calcium/Vitamin D 1 tab 07/17/19 09:00 07/19/19 08:31 Caltrate 600 + Vit D PO 1 tab DAILY DEBBI Administration Vancomycin HCl 1.5 gm/ Device 300 mls @ 200 mls/hr 07/18/19 17:00 07/18/19 18 :36 IVPB 300 mls 1700 DEBBI Administration Piperacillin Sod/Tazobactam 100 mls @ 200 mls/hr 07/18/19 22:00 07/19/19 15: 50 Sod 2.25 gm/ Sodium Chloride IVPB 100 mls 0400,1000,1600,2200 DEBBI Administration Lactated Ringer's 1,000 mls @ 125 mls/hr 07/19/19 07:45 07/19/19 08:32 Lactated Ringer's IV 1,000 mls .Q8H DEBBI Administration Meclizine HCl 25 mg 07/17/19 09:00 07/19/19 08:31 Antivert PO 25 mg DAILY DEBBI Administration Terazosin HCl 5 mg 07/16/19 21:00 07/18/19 20:12 Hytrin PO 5 mg HS DEBBI Administration - Exam General Appearance: NAD Heart: RRR, no gallops Respiratory: CTAB, no rales Gastrointestinal: soft, normal bowel sounds Gastrointestinal - other findings: mild Rt sided flank pain, minimal erythema Extremities: no edema Neurological: no new deficit Hosp A/P - Plan DVT proph w/SCDs Complicated UTI/?Rt Nephrostomy site infection Left Nephrotomy tube malfunction s/p replacement DONG on CKD 3 - worsening Metabolic acidosis h/o Prostate CA Obstructive uropathy s/p ureteral stents LUE swelling - r/o DVT PLAN: Cont IV Vanc/Zosyn Monitor Vanc level IVF restarted due to DONG LUE doppler - negative Cont other meds Await ID input
[2019-07-19] MEDS: Vancomycin 1.5 GRAM/300 ML BAG 1.5 GM in Premix Bag 1 BAG IVPB SCH (17:11)
[2019-07-19] MEDS: Terazosin HCl 5 MG CAP PO SCH (20:52)
[2019-07-20] MEDS: Lactated Ringer's 1,000 ML IV SCH ×3 (01:57→16:55)
[2019-07-20] MEDS: Piperacillin/Tazobactam 2.25 GM in Sodium Chloride 0.9% 100 ML IVPB SCH ×4 (05:35→20:45)
[2019-07-20 06:36] LABS: Anion Gap 11 mmol/L (10-20); BUN (Urea Nitrogen) 42 mg/dL (8.4-25.7); BUN/Creatinine Ratio 11.86; Calc. Creatinine Clearance 24 mL/min (70-130); Calcium 8.8 mg/dL (7.8-10.44); Carbon Dioxide 24 mmol/L (23-31); Chloride 110 mmol/L (98-107); Estimated GFR-MDRD 17; Glucose 85 mg/dL (83-110); Phosphorus 3.4 mg/dL (2.3-4.7); Potassium 4.4 mmol/L (3.5-5.1); Sodium 141 mmol/L (136-145)
[2019-07-20] MEDS: Meclizine HCl 25 MG TAB PO SCH (08:27)
[2019-07-20] MEDS: Calcium Carbonate + Vit D 1 TAB PO SCH (08:27)
[2019-07-20] MEDS: Acetaminophen 325 MG TAB PO SCH ×3 (08:28→20:45)
--- NOTE | 2019-07-20 10:44 | CT ---
CT ABDOMEN AND PELVIS WITHOUT IV CONTRAST: HISTORY: Worsening renal function. Bilateral nephrostomy tubes in place. COMPARISON: None. FINDINGS: There are tiny bilateral pleural effusions with consolidation at each lung base, greater on the left, probably related to atelectasis. However, developing infiltrate left lung base cannot be entirely ex cluded. Bilateral nephrostomy tubes are noted in place. The [place] loop portion of the right nephrostomy tube a ppears to be in an inferior pole right renal calyx with the pigtail portion of the left nephrostomy t ube appearing to be within the region of the left renal pelvis, near the region of the left UPJ. Ther e is increased density seen in a subcapsular location involving the left kidney, which extends from t he superior to inferior pole. The greatest transverse dimension of the increased density related to s ubcapsular hematoma, is 3.3 cm. This does result in compression deformity of the renal parenchyma, mitchell ggestive of a page kidney. No perinephric hemorrhage or inflammatory stranding is identified. There i s no evidence of hydronephrosis. There is mild thickening of the richardson of the right renal pelvis and proximal right ureter, which may be related to nephrostomy tube. Infection could not be entirely excl uded. There is slight eccentric thickening involving the anterior and right anterolateral aspect of the wal ls of the urinary bladder. This could be related to incomplete distention. Depending on clinical conc lester, cystoscopy could be performed for further evaluation. An approximately 3 mm increased density fo cus is seen in the right lateral dependent portion of the urinary bladder, which is suggestive of a t iny urinary bladder calculus. Lack of intravenous contrast limits sensitivity for evaluation of the parenchymal organs; however, th e liver, spleen, pancreas and bilateral adrenal glands demonstrate a grossly normal nonenhanced CT ap pearance. Vascular calcifications are seen in the abdominal aorta and involving the iliac arteries. A small to moderate amount of retained fecal material is seen throughout the colon. Colonic diverticu losis is present. Loops of small bowel are normal in caliber. Multilevel degenerative changes are seen in the lower thoracic as well as involving the lumbar spine. IMPRESSION: 1. Left renal subcapsular hematoma resulting in deformity and compression of the left kidney suggesti ve of a page kidney. 2. Bilateral percutaneous nephrostomy tubes are noted in place. No hydronephrosis is present. There i s mild thickening of the richardson of the right renal pelvis and right proximal ureter, which is nonspeci fic and may be related to chronic indwelling nephrostomy tube. Inflammatory or infectious process not excluded. 3. Tiny bilateral pleural effusions and probable associated bibasilar atelectasis. 4. Mild eccentric thickening involving portions of the urinary bladder wall. This could be related to incomplete distention. The urinary bladder wall thickening is probably related to incomplete distent ion although slightly eccentric thickening present. 3 mm urinary bladder calculus noted. 5. The above findings were discussed with Dr. Mitchell on 07/20/2019 at 0917 hours. CODE CR POS: TPC
[2019-07-20 11:30] LABS: Hemoglobin 8.2 g/dL (14.0-18.0); Mean Corpuscular HGB CONC 33.5 g/dL (32.0-36.0); Mean Corpuscular Hemoglobin 31.6 pg (27.0-31.0); Mean Corpuscular Volume 94.5 fL (78.0-98.0); Mean Platelet Volume 9.1 fL (7.4-10.4); Platelet Count 188 thou/uL (130-400); RBC Distribution Width 11.8 % (11.5-14.5); White Blood Cell (WBC) Count 7.6 thou/uL (4.8-10.8)
--- NOTE | 2019-07-20 14:49 | CON ---
DATE OF CONSULTATION: 07/20/2019 REASON FOR CONSULTATION: Renal hematoma. HISTORY OF PRESENT ILLNESS: Mr. Art Dobbs is a pleasant 73-year-old white male, [facility] inmate, who presented due to issues with his percutaneous nephrostomy tubes. The patient has a history of prostate cancer diagnosed on transurethral resection of the prostate gland in [place] and he also has bilateral ureteral obstruction secondary to metastatic disease. The patient is ordinarily cared for in the [facility], presents on this hospital admission due to issues with his nephrostomy tube following out. The patient underwent IR exam on 07/13/2019 for his left nephrostomy tube replacement and this was successfully replaced. The patient then was hospitalized and during the course of the hospitalization, did require a second trip to Interventional Radiology on 07/17/2019, again for left nephrostomy tube exchange as the tube partially fell out. Subsequent to this, the patient has developed a perinephric hematoma on the left side. The patient is relatively asymptomatic with respect to that. His bilateral percutaneous nephrostomy tubes have been draining appropriately and he is getting almost all of his urine output via the 2 percutaneous nephrostomy tubes, which seem to have about symmetric urine output. There is minimal of any hematuria in the patient's right bag and none on the left. A CT scan of the abdomen and pelvis performed on 07/20/2019 in the a.m. hours demonstrates the presence of a left perinephric hematoma. The percutaneous nephrostomy tube appears to be in place. The subcapsular hematoma results in deformity and compression of the left kidney, which is suggestive of partial page type kidney. The patient's hematoma does not fully engulf the parenchyma. The patient continues to have adequate urine output from the left-sided percutaneous nephrostomy tube suggesting that his compressive process is not excessive. PAST MEDICAL HISTORY: 1. Adenocarcinoma of the prostate gland, currently on medical management due to metastatic stage IV disease, managed through [facility] in [place]. 2. Bilateral ureteral obstruction secondary to metastatic disease requiring bilateral percutaneous nephrostomy tubes. 3. New diagnosis of subcapsular hematoma of the left kidney. PAST SURGICAL HISTORY: 1. Transurethral resection of prostate gland. 2. Bilateral percutaneous nephrostomy tube placement. 3. History of bilateral ureteral stent placement. SOCIAL HISTORY: The patient is a [facility] [employer] inmate. He does not have history of alcohol consumption or cigarette smoking prior to hospitalization. The patient's parents were both heavy smokers. FAMILY MEDICAL HISTORY: No family medical history of prostate cancer. The patient's father is of pulmonary condition secondary to cigarette smoking. The patient's mother also with a history of cigarette smoking related disorders. ALLERGIES: THE PATIENT HAS NO KNOWN DRUG ALLERGIES. MEDICATION LIST: Includes the followin. Piperacillin/tazobactam. 2. Vancomycin. 3. Terazosin hydrochloride. 4. Zofran. The patient is presumptively on medical therapy with Lupron in the TDC. PHYSICAL EXAMINATION: VITAL SIGNS: Blood pressure is 116/65, temperature is 97.5, pulse is 106, respirations 18, and O2 saturations 92% on room air. GENERAL: This is a pleasant awake, alert, white male, in no distress at all. He is able to ambulate and stand without difficulty. The patient does not complain of any orthostatic type symptoms. HEAD, EYES, EARS, NOSE, AND THROAT: Extraocular movements are intact. Sclerae anicteric. Oropharynx is clear. NECK: Supple. LUNGS: Clear to auscultation bilaterally. CARDIAC: Regular rate and rhythm, which is borderline tachycardic exam. ABDOMEN: Soft and nontender. There are no scars in the chest or abdomen. BACK: There are bilateral percutaneous nephrostomy tubes in place, which appear to be correctly positioned. He is drained to leg bags containing clear colored urine on the left and very slightly pink tinged urine on the right. There is no evidence of clots. EXTREMITIES: The patient has trace edema of the bilateral lower extremities observed. GENITOURINARY: Phallus is uncircumcised without lesion. Testes are markedly atrophic. Palpation of inguinal canals finds no evidence of hernia. Digital rectal examination finds prerectal wall mass consistent with tissue invasive adenocarcinoma of the prostate gland. Prostate tissues fixed to surrounding tissue indicating invasion. Lymph node survey finds no palpable lymph nodes of significance. The patient does not complain of any rib sites or spine sites at the present time. LABORATORY STUDIES: The patient has urine culture from 07/16/2019 from nephrostomy tube showing presence of Pseudomonas and methicillin-resistant Staph aureus. The repeat culture performed on 07/19 shows Pseudomonas aeruginosa without MRSA. The patient's white count now 8500 down from a peak of 11,500 on 07/15. Hemoglobin is 8.5 with hematocrit of 25.7. Serum chemistry shows improvement in the patient's blood urea nitrogen from 50, now down to 42 today. Creatinine stable at 3.54. The BUN to creatinine ratio was 11.86 indicating adequate hydration. ASSESSMENT: 1. Metastatic prostate cancer, presumably on medical therapy, but it would be appropriate to continue this patient on maximal medical therapy for his prostate cancer. 2. Percutaneous nephrostomy tube malfunction. Tubes have been exchanged. There is a subcapsular hematoma associated with the patient's left kidney on CT scan imaging. This is not a full page type kidney; although, there is some compression of the patient's renal parenchyma. Urine output still appears to be adequate from the left side. At present time, simple observation would appear appropriate. Bed rest and avoidance of anticoagulants such as aspirin and other known anticoagulant medications. This patient should not be managed with heparin or Lovenox during his hospitalization. NAHUN hose or sequential compression devices are appropriate. The patient would be a suitable for the TDC cruz based on examination and findings. He appears to be tolerating this condition well. 3. Urinary drainage. This patient could undergo internalization with indwelling bilateral ureteral stents. He would require special stents design for patients with malignancy, however. This might reduce the overall infection risk for the patient by full internalization. Given his extensive pelvic disease, it would be easy to place stents in, however. Over 70 minutes of initial consultation and assessment time was spent with this patient today. Job ID: [id number]
[2019-07-20 16:45] LABS: Vancomycin, Trough 22.2 ug/mL
[2019-07-20] MEDS: Vancomycin 1.5 GRAM/300 ML BAG 1.5 GM in Premix Bag 1 BAG IVPB SCH (16:54)
[2019-07-20 17:45] LABS: INR-International Normal Ratio 1.1; PTT 32.2 SEC (22.9-36.1); Prothrombin Time 13.8 SEC (12.0-14.7)
[2019-07-20] MEDS: Terazosin HCl 5 MG CAP PO SCH (20:45)
[2019-07-20 23:01] LABS: Hemoglobin 8.2 g/dL (14.0-18.0)
--- NOTE | 2019-07-20 23:36 | CON ---
DATE OF CONSULTATION: 07/20/2019 REASON FOR CONSULTATION: To evaluate possible presence of invasive infectious process. HISTORY OF PRESENT ILLNESS: A 73-year-old admitted on July 13 when he presented with a history of metastatic prostate cancer presumably to the pelvic area and bone causing bilateral hydronephrosis, which has been managed with chemotherapy as well as bilateral stents and then removal of stents and transition to nephrostomies, right and left side. The first time nephrostomies were replaced was in December this year and then replaced in May. The left nephrostomy tube was dislodged and he had to be admitted, had replacement x2 since admission and developed a perinephric hematoma on the left side. Urology has seen the patient. Currently, he is awake, oriented, does not appear in distress. No headaches, visual symptoms, sore throat, odynophagia, or dysphagia. No dyspnea or chest pain. No abdominal pain or back pain. No new genitourinary symptoms otherwise. He still has significant urine output from the bladder in addition to his nephrostomy output. No joint symptoms , no neurological symptoms. PAST MEDICAL HISTORY: Prostate cancer, stage IV on chemo, nephrostomy tubes bilaterally, hearing loss, heart murmur. PAST SURGICAL HISTORY: 1. Nephrostomy tubes, ureteral stents, which have been removed. 2. Prostatectomy. FAMILY HISTORY: Noncontributory. ALLERGIES: NONE. MEDICATIONS: Hospital medications include: 1. Tylenol. 2. [place]. 3. Dulcolax. 4. Caltrate. 5. Sublimaze 7. Antivert. 8. Versed. 9. Zofran. 10. Zosyn. 11. Vancomycin. SOCIAL HISTORY: He is currently at [facility] nursing home and there is no past history of smoking. No alcoholic beverage use or other drug use. ALLERGIES: NONE. PHYSICAL EXAMINATION: VITAL SIGNS: The patient's T-max was 99.9 on July 16. He has been afebrile since BP 116/65, pulse 106, respirations 18, O2 saturation 92-94, his blood pressure has been normal throughout the hospital stay. SKIN: Exam shows bilateral nephrostomy tubes in place and peripheral IV access, does not have Bryan catheter. No lymphadenopathy. HEENT: Ocular movements conjugate. Sclerae white. Pupils are equal. Oral cavity with numerous kaguy[place] teeth in place with the expected decay and gum disease. NECK: Supple. No jugular venous distention or carotid bruits. No thyromegaly. LUNGS: Symmetric air entry. No crackles or wheezing. HEART: S1, S2. Regular rate. No S3 or S4. No murmurs. ABDOMEN: Soft, not distended or tender. No ascites. No bladder distention. EXTREMITIES: No joint inflammatory activity. Moves extremities equally with no limitations. NEUROLOGIC: Nonfocal. LABORATORY DATA: White cell count is 11.5 on arrival and hemoglobin 10.3, WBC 7.6, hemoglobin 8.2, platelets 188. Differential has been normal. Platelets normal. Creatinine was 3.37, now 3.54. Albumin is 3.4, now 3.0. Urinalysis with greater than 50 wbc's on arrival, July 16. Cultures with Pseudomonas aeruginosa from the nephrostomy tube. MRSA on arrival on 07/[address] pelvis [address] from today with left renal subcapsular hematoma resulting in deformity and compression of left kidney and nephrostomy tube in place. No hydronephrosis. Bilateral small pleural effusions and eccentric thickening of portions of urinary bladder wall. ASSESSMENT: 1. Metastatic prostate cancer to bone and locally invasive with hydronephrosis and urinary obstruction requiring nephrostomy tube placement and chemotherapy. 2. Nephrostomy tube displacement on the left side secondary to movement. 3. Mild neutrophilia, which has resolved. DISCUSSION: The patient's obstructive symptoms have improved after replacement of the nephrostomy tube that was on the left side. He does have a hematoma, but degree of compression is not to the extent that would require intervention at this moment as stated by Dr. Mina. The patient's with nephrostomy tubes will always have abnormal urinalysis and colonization by different pathogens and one have to use judgment as to the need for antimicrobial therapy. In this case in the presence of normalization of the white cell count, even before he started receiving antibiotics would indicate that probably he does not have an invasive process. If so desired, one can prescribe him quinolone for a short period of time upon discharge planning, but not longer than 5 to 7 days. I would not target the MRSA retrieved in the original sample though. There is no evidence of a systemic infectious process at this point in time and as long as the nephrostomy tubes remain patent without displacement, he should not at least in the next few weeks run into problems. Job ID: [id number] [facility]
[2019-07-21] MEDS: Piperacillin/Tazobactam 2.25 GM in Sodium Chloride 0.9% 100 ML IVPB SCH ×2 (04:04→10:36)
[2019-07-21 05:44] LABS: #Basophils 0.1 thou/uL (0.0-0.2); #Eosinphils 0.7 thou/uL (0.0-0.7); #Lymphocytes 2.1 thou/uL (1.20-3.40); #Monocytes 0.6 thou/uL (0.11-0.59); #Neutrophils 4.4 thou/uL (1.40-6.50); %Basophils 0.8 % (0.0-1.0); %Eosinophils 9.2 % (0.0-10.0); %Lymphocytes 26.8 % (21.0-51.0); %Neutrophils 55.3 % (42.0-75.0); Hemoglobin 8.5 g/dL (14.0-18.0); Mean Corpuscular HGB CONC 33.1 g/dL (32.0-36.0); Mean Corpuscular Volume 93.6 fL (78.0-98.0); Mean Platelet Volume 8.6 fL (7.4-10.4); Platelet Count 185 thou/uL (130-400); RBC Distribution Width 11.9 % (11.5-14.5); Red Blood Cell (RBC) Count 2.75 mill/uL (4.70-6.10); White Blood Cell (WBC) Count 7.9 thou/uL (4.8-10.8)
[2019-07-21 06:11] LABS: ALT (SGPT) 21 U/L (8-55); AST (SGOT) 19 U/L (5-34); Albumin 2.9 g/dL (3.4-4.8); Alkaline Phosphatase 66 U/L (40-110); Anion Gap 13 mmol/L (10-20); BUN (Urea Nitrogen) 38 mg/dL (8.4-25.7); Bilirubin, Total 0.3 mg/dL (0.2-1.2); Calc. Creatinine Clearance 25 mL/min (70-130); Calcium 8.7 mg/dL (7.8-10.44); Carbon Dioxide 21 mmol/L (23-31); Chloride 112 mmol/L (98-107); Estimated GFR-MDRD 17; Globulin 2.8 g/dL (2.4-3.5); Glucose 90 mg/dL (83-110); Potassium 4.4 mmol/L (3.5-5.1); Protein, Total 5.7 g/dL (5.8-8.1); Sodium 142 mmol/L (136-145)
--- NOTE | 2019-07-21 07:10 | PDOC.HOSPP ---
- Subjective Encounter Date: 07/20/19 Encounter Time: 17:30 Subjective: Patient seen and examined for DONG/Nephrostomy tube malfunction. Left flank pain improving. No fever. No new complaints. No overnight events - Objective Vital Signs & Weight: Vital Signs (12 hours) Temp Pulse Resp BP Pulse Ox 07/20/19 20:23 98.1 F 68 16 127/76 97 Weight Weight 208 lb I&O: 07/20/19 07/21/19 07/22/19 06:59 06:59 06:59 Intake Total 3300 920 Output Total 2350 2267 Balance 950 -1347 Result Diagrams: 07/21/19 05:30 07/21/19 05:30 Radiology Reviewed by me: Yes (CT abd - reviewed) Hospitalist ROS - Review of Systems Respiratory: denies: cough, dry, shortness of breath, hemoptysis, SOB with excertion, pleuritic pain, sputum, wheezing, other Cardiovascular: denies: chest pain, palpitations, orthopnea, paroxysmal noc. dyspnea, edema, light headedness, other - Medication Medications: Active Medications Generic Name Dose Route Start Last Admin Trade Name Freq PRN Reason Stop Dose Admin Acetaminophen 650 mg 07/16/19 15:00 07/20/19 20:45 Tylenol PO 650 mg TID DEBBI Administration Hydrocodone Bitart/Acetaminophen 1 tab 07/13/19 19:29 07/18/19 20:15 [place] 5/325 PO 1 tab Q4H PRN Administration Moderate Pain (4-6) Calcium/Vitamin D 1 tab 07/17/19 09:00 07/20/19 08:27 Caltrate 600 + Vit D PO 1 tab DAILY DEBBI Administration Piperacillin Sod/Tazobactam 100 mls @ 200 mls/hr 07/18/19 22:00 07/21/19 04: 04 Sod 2.25 gm/ Sodium Chloride IVPB 100 mls 0400,1000,1600,2200 DEBBI Administration Meclizine HCl 25 mg 07/17/19 09:00 07/20/19 08:27 Antivert PO 25 mg DAILY EDBBI Administration Terazosin HCl 5 mg 07/16/19 21:00 07/20/19 20:45 Hytrin PO 5 mg HS DEBBI Administration - Exam General Appearance: NAD Heart: RRR, no gallops Respiratory: no wheezes, no rales Gastrointestinal: soft, non-tender, normal bowel sounds Extremities: no edema Hosp A/P - Plan DVT proph w/SCDs Complicated UTI/?Rt Nephrostomy site infection Left renal subcapsular hematoma Left Nephrotomy tube malfunction s/p replacement DONG on CKD 3 Metabolic acidosis h/o Prostate CA Obstructive uropathy s/p ureteral stents LUE swelling - r/o DVT PLAN: Consult Urology Monitor HH Transfuse to maintain Hb >7 Cont IV Atbx - Vanc/Zosyn Monitor Vanc level Cont IVF Cont other meds
[2019-07-21] MEDS: Calcium Carbonate + Vit D 1 TAB PO SCH (07:43)
[2019-07-21] MEDS: Meclizine HCl 25 MG TAB PO SCH (07:43)
[2019-07-21] MEDS: Acetaminophen 325 MG TAB PO SCH (07:43)
[2019-07-21 13:13] VITALS: BP 125/77; TEMP 97.7
--- NOTE | 2019-07-21 15:12 | CON ---
DATE OF CONSULTATION: 07/21/2019 INITIAL REASON FOR CONSULTATION: Left subcapsular renal hematoma following percutaneous nephrostomy tube replacement. HISTORY OF PRESENT ILLNESS: Mr. Art Dobbs is a pleasant 73-year-old white male in [facility], who presented due to issues with obstruction or displacement of his percutaneous nephrostomy tubes. The patient has history of prostate cancer diagnosed with transurethral resection of his prostate gland in [place] and he has bilateral ureteral obstruction secondary to metastatic disease. The patient is ordinarily cared for in the [facility] and presented to this hospital on admission due to issues with his nephrostomy tubes falling out. The patient underwent an IR exam on 07/13/2019 for a left nephrostomy tube replacement and this was successfully replaced. The patient was hospitalized for awhile longer and required a second trip to Interventional Radiology on 07/17/2019, again for a left-sided nephrostomy tube exchange as the tube had partially fallen out. Subsequent to this, the patient developed a subcapsular hematoma on the left side and was relatively asymptomatic to that. The patient's bilateral percutaneous nephrostomy tubes were draining appropriately and approximately equal amounts. The patient's hematocrit remained stable, slightly improved overnight and his labs today show that his creatinine continues to fall after the previous tube was obstructed. The patient is having general improvement. He has no clinical symptoms of pain in the left kidney at this point, other than normal movement associated discomfort by his report. Please see my initial consultation report for the patient's previous medical history. PHYSICAL EXAMINATION: VITAL SIGNS: The patient has been afebrile overnight with temperature of 98.1, pulse of 66, respirations 18, and O2 saturation on room air is 94% with current blood pressure of 144/79. HEAD, EYES, EARS, NOSE, AND THROAT: Extraocular movements are intact. Sclerae are anicteric. Oropharynx is clear. NECK: Supple. LUNGS: Clear to auscultation bilaterally. CARDIAC: Regular rate and rhythm. ABDOMEN: Soft and nontender. BACK: There is on percussion. Bilateral percutaneous nephrostomy tubes are in place and they are draining clear urine at this time. EXTREMITIES: Appear within normal limits. NEUROLOGIC: Cranial nerves III through XI appear to be grossly intact. The patient is able to stand and raise all 4 extremities against gravity. LABORATORY STUDIES: As noted with general stability of the hemoglobin and hematocrit with slight improvement and continuing improvement in blood urea nitrogen and creatinine especially. On microbiology, the patient did have cultures positive for MRSA and Pseudomonas during this hospitalization. ASSESSMENT AND PLAN: 1. Metastatic prostate cancer, presumably on medical therapy. It would be appropriate to continue this medical therapy as an outpatient through the [facility] system. 2. Percutaneous nephrostomy tube malfunction. The tubes have been exchanged and they are functioning correctly today. Does have a subcapsular hematoma associated with left kidney on CT scan imaging. However, we see no further drops in his hematocrit and his renal function appears to continue to improve. There is not kidney rather subcapsular hematoma with some compression of the patient's renal parenchyma. Urine output is good and is essentially unchanged with overall improvement in creatinine and blood urea nitrogen indicating probable resolution of bleeding. No further imaging or additional studies required at this point. Bed rest and avoidance of anticoagulants such as aspirin and other known anticoagulant medication should be made. Nephrotoxic medications should be specifically avoided. 3. Infectious disease issues. I agree with Dr. Linton' assessment on this patient. Normal colonization occurs when continuously indwelling drains are in the urinary system in the treatment for microbiological contamination that is of significance would be change of the hardware, which has been done in this patient's case. The presence of Pseudomonas and methicillin-resistant Staphylococcus aureus are really not overly concerning. I agree with the plan to avoid treatment of this patient's methicillin-resistant Staphylococcus aureus, which does not appear to be making him sick. These urinary drain should be thought of as an abscess drain and we would not get carried away with treatment of normal skin to catheter colonizations. At the present time, it seems appropriate for discharge on a limited course of Levaquin. 4. Urinary drainage. I think overall evaluation of this patient to have stent replacement on him would be difficult or this would have been performed previously. His bladder is likely to be heavily involved with prostate cancer extension and an access from below may be extremely difficult. At present time, he seems to be on appropriate management plan for his difficult situation. Over 35 minutes of consultation assessment time was spent in evaluation and assessment of this patient today. Job ID: [id number]
--- NOTE | 2019-07-21 16:27 | PDOC.HOSPP ---
- Subjective Encounter Date: 07/21/19 Encounter Time: 09:30 Subjective: Patient seen and examined for DONG/renal hematoma. Flank pain improving. No new complaints. No overnight events - Objective Vital Signs & Weight: Vital Signs (12 hours) Temp Pulse Resp BP Pulse Ox 07/21/19 13:13 97.7 F 75 17 125/77 94 L 07/21/19 08:00 94 L 07/21/19 07:22 98.1 F 66 18 144/79 H 94 L Weight Weight 208 lb I&O: 07/20/19 07/21/19 07/22/19 06:59 06:59 06:59 Intake Total 3300 920 Output Total 2350 2267 Balance 950 -1347 Result Diagrams: 07/21/19 05:30 07/21/19 05:30 Hospitalist ROS - Review of Systems Cardiovascular: denies: chest pain, palpitations, orthopnea, paroxysmal noc. dyspnea, edema, light headedness, other Gastrointestinal: denies: nausea, vomiting, abdominal pain, diarrhea, constipation, melena, hematochezia, other - Exam Heart: RRR, no gallops Respiratory: no wheezes, no rales, no ronchi Gastrointestinal: soft, non-tender, non-distended, normal bowel sounds Extremities: no edema Hosp A/P - Plan DVT proph w/SCDs Complicated UTI/?Rt Nephrostomy site infection Left renal subcapsular hematoma Left Nephrotomy tube malfunction s/p replacement DONG on CKD 3 Metabolic acidosis h/o Prostate CA Obstructive uropathy s/p ureteral stents LUE swelling - r/o DVT PLAN: Change Atbx to PO Cipro per ID Stable for DC Cleared by Urology/Nephro Cont other meds
--- NOTE | 2019-07-21 17:20 | DIS ---
DATE OF ADMISSION: 07/13/2019 DATE OF DISCHARGE: 07/21/2019 DISCHARGE DISPOSITION: Patient is an inmate. DISCHARGE MEDICATIONS: Ciprofloxacin 250 mg daily for next seven days. All other home medications were left unchanged. Please note that the patient was advised to avoid NSAIDs due to renal hematoma. The patient was advised to follow up with primary urologist at [facility] in 1 week. CBC and basic met after 1 week are recommended. Primary care physician advised to follow. The patient was seen and examined on the day of discharge. Please refer to my progress notes for detail. BRIEF HOSPITAL COURSE: The patient is a 73-year-old male with prostate cancer, status post bilateral nephrostomy tube, presented to the hospital with left nephrostomy tube malfunction. He was monitored on the medical floor. Interventional Radiology was consulted for left nephrostomy tube placement, which was successfully placed on the . However, his renal function started to get worse. There was also zero urinary output from the left nephrostomy tube. A new nephrostomy tube on the left side was placed on the . However, his renal function continued to get worsen. 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 He was evaluated by Urology and Dr. Mina. Dr. Mina recommended conservative management. Bedrest and avoidance of anticoagulants such as aspirin, and NSAIDs including nephrotoxic medications should be avoided. His hemoglobin stayed stable. He has been cleared by Urology for discharge. The patient was also found to have Pseudomonas and MRSA through the nephrostomy tube. He was evaluated by Infectious Disease, Dr. Linton. According to Dr. Linton, the patient probably has colonization rather than true infection. His white cell counts remain normal. He was afebrile. Dr. Linton recommended a shot after duration of ciprofloxacin. He has been cleared by Infectious Disease, Nephrology and Urology for discharge. FINAL DIAGNOSES: 1. Left nephrostomy tube malfunction status post replacement. 2. Left renal subscapular hematoma. 3. Suspected Pseudomonas urinary tract infection. 4. Acute kidney injury on chronic kidney disease stage 3. 5. Metabolic acidosis. 6. History of prostate cancer. 7. Obstructive uropathy status post ureteral stents. 8. Left upper extremity swelling. This is probably due to handcuffs. DVT was ruled out. TIME SPENT WITH PATIENT: Total time coordinating the discharge of this patient was 34 minutes. Job ID: [id number]
[2019-07-21] MEDS ORDERED: Vancomycin HCl 1.25 GM in Sodium Chloride 0.9% 250 ML 250 ML IVPB SCH (18:00)
--- NOTE | 2019-07-21 18:44 | PRG ---
DATE OF SERVICE: 07/21/2019 SERVICE: Nephrology. SUBJECTIVE: A 73-year-old long term inmate with chronic kidney disease as well as prostate cancer, associated with bilateral hydronephrosis status post bilateral nephrostomy tubes, admitted after the left nephrostomy tube was dislodged. Nephrology is seeing the patient for acute on chronic renal failure post replacement of left nephrostomy tube. The patient reports feeling great. Denied nausea or vomiting. Reported bilateral leg edema. Drainage from both nephrostomy tubes is adequate. The patient still makes some urine from the penis. OBJECTIVE: VITAL SIGNS: Temperature 97.7, pulse 75, respiratory rate 17, SpO2 is 94% on room air, blood pressure is 125/77. GENERAL: Healthy-looking, elderly male, in no distress. Afebrile, anicteric, acyanotic. HEENT: Normocephalic and atraumatic. Oral mucosa is moist. CARDIOVASCULAR: Regular rhythm and rate with systolic murmur. RESPIRATORY: Good air entry bilaterally with few transmitted breath sounds. No respiratory distress or wheezing appreciated. GI: Full, soft, nontender, nondistended with normal bowel sounds. MUSCULOSKELETAL: Bilateral lower back nephrostomy tubes noted, connected to urine bag. EXTREMITIES: [id number] bilateral leg edema noted. LIGHT EQUIPMENT OPERATOR: Conscious, alert, and oriented x3 with appropriate mental status. Cranial nerves 2 through 12 are grossly intact. DIAGNOSTIC DATA: CBC showed WBC count of 7.9, hemoglobin of 8.5, platelets of 185. Renal function panel showed sodium 142, potassium 4.4, chloride 112, CO2 of 21, BUN 38, creatinine 3.45. Yesterday, creatinine was 3.54 and BUN was 42. ASSESSMENT: 1. Acute kidney injury: Most likely related to subcapsular hematoma on the left following replacement of nephrostomy tube. 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 The urologist recommended conservative management. 2. Acute on chronic blood loss anemia. Related to subcapsular hematoma. Hemoglobin currently is stable after initial drop. 3. Right nephrostomy exit site drainage and abnormal urinalysis suggestive of urinary tract infection. Seen by Infectious Disease and felt to be related to colonization. However, short course of antibiotics was recommended. 4. Bilateral leg swelling: Improved with discontinuation of IV fluids. Most likely related to venous insufficiency, given metastatic prostate cancer. PLAN: 1. The patient can be discharged back to the long term from Nephrology point of view. However, close followup with repeat renal function test and CBC is recommended. The patient can follow up at the office if he chooses or he can follow up at [place] with his regular Nephrology. 2. Avoid nephrotoxic agents. Job ID: [id number]
--- NOTE | 2019-07-23 08:12 | PRG ---
DATE OF SERVICE: 07/20/2019 SERVICE: Nephrology. SUBJECTIVE: A 73-year-old jail inmate with known history of prostate cancer associated with bilateral hydronephrosis status post bilateral nephrostomy tubes, admitted after dislodgement of left nephrostomy tube. The patient is being followed for acute on chronic renal failure. Complains of neck swelling. Right flank pain has subsided. Remained afebrile. OBJECTIVE: VITAL SIGNS: Temperature 97.8, pulse 66, respiratory rate 19, SpO2 94% on room air, blood pressure is 95/64. GENERAL: Comfortable elderly male, in no distress. Afebrile. Anicteric. Acyanotic. HEENT: Normocephalic, atraumatic. Oral mucosa is moist. CARDIOVASCULAR: Regular rhythm with soft systolic murmur. RESPIRATORY: Good air entry bilaterally with few transmitted breath sounds. Work of breathing is not increased. GI: Full, soft, nontender, nondistended with normal bowel sounds. EXTREMITIES: Moderate bilateral leg edema noted. MEDICAL EQUIPMENT TECHNICIAN: Conscious, alert, oriented x3 with appropriate mental status. Cranial nerves 2 through 12 are grossly intact. DIAGNOSTIC DATA: Renal function panel today showed sodium 141, potassium 4.4, chloride 110, CO2 of 24, BUN 42, creatinine 3.52, glucose 85, calcium 8.8, phosphorus 3.4, albumin 3.0. ASSESSMENT: 1. Acute on chronic renal failure. Despite IV fluid therapy, BUN and creatinine are trending up. This is concerning for either pyelonephritis or some complications related to bilateral nephrostomy tube. Infection and abscess are a concern. 2. Bilateral leg edema: Related to IV fluid therapy. 3. Anemia in chronic kidney disease. 4. Prostate cancer with bilateral hydronephrosis status post bilateral nephrostomy tubes. 5. Right-sided nephrostomy related urinary tract infection. Urine cultures were growing Pseudomonas and Staph. PLAN: 1. We will get CT scan of the abdomen and pelvis without contrast. We will also get hemoglobin, hematocrit, and CBC. 2. Further treatment to follow depending on review of other diagnostic tests. 3. Continue antibiotics. 4. Discontinue IV fluid given bilateral leg edema. ADDENDUM: CT scan of the abdomen showed left-sided subcapsular hematoma with Page kidney. I discussed this case with the primary attending and recommended Urology consult as soon as possible. We will follow along and repeat renal function tests. We will also monitor hemoglobin and hematocrit. Job ID: [id number]
== END 2019-07-21 14:35 | DRG 699 ==
LOC: T4-A 17:22 → EEVIPCON 17:22 → OBSVTOIN 17:22 → INTOOBSV 17:22
PROVIDERS: ADMIT Internal Medicine; ATTEND Internal Medicine
PROC: 0T9130Z Drainage of Left Kidney with Drainage Device, Percutaneous Approach (ICD-10-PCS; principal; 2019-07-14)
PROC: 0T25X0Z Change Drainage Device in Kidney, External Approach (ICD-10-PCS; 2019-07-17)
PROC: BT121ZZ Fluoroscopy of Left Kidney using Low Osmolar Contrast (ICD-10-PCS; 2019-07-17)
DX: T83.512A Infection and inflammatory reaction due to nephrostomy catheter, initial encounter (principal); S37.012A Minor contusion of left kidney, initial encounter; N17.9 Acute kidney failure, unspecified; E87.2 Acidosis; N13.6 Pyonephrosis; C79.51 Secondary malignant neoplasm of bone; I12.9 Hypertensive chronic kidney disease with stage 1 through stage 4 chronic kidney disease, or unspecified chronic kidney disease; N18.3 Chronic kidney disease, stage 3 (moderate); B96.5 Pseudomonas (aeruginosa) (mallei) (pseudomallei) as the cause of diseases classified elsewhere; B95.62 Methicillin resistant Staphylococcus aureus infection as the cause of diseases classified elsewhere; Z95.828 Presence of other vascular implants and grafts; H91.90 Unspecified hearing loss, unspecified ear; Z85.46 Personal history of malignant neoplasm of prostate; E86.9 Volume depletion, unspecified; D63.1 Anemia in chronic kidney disease; T83.89XA Other specified complication of genitourinary prosthetic devices, implants and grafts, initial encounter; Y84.6 Urinary catheterization as the cause of abnormal reaction of the patient, or of later complication, without mention of misadventure at the time of the procedure; C61 Malignant neoplasm of prostate
CPT/HCPCS: 36415; 50430; 50431; 50433; 50436; 74176; 75984; 76770; 80048; 80053; 80069; 80202; 81001; 82570; 84300; 84540; 85025; 85027; 85610; 85730; 86850; 86900; 86901; 87040; 87077; 87086; 87186; C1729; J2250; J2543; J3010; J3490; J8597; Q9967